=== PATIENT | male | born 1940 | race Caucasian/White ===

== ENCOUNTER 2019-07-01 10:59 | Inpatient (IN) ==
[2019-07-01 11:48] LABS: Basophils % 0.5 %; Eosinophils # 0.1 K/mcL (0.0-0.6); Eosinophils % 1.8 %; Hematocrit 49.9 % (37.5-50.1); Hemoglobin 16.7 g/dL (12.9-16.9); Immature Granulocytes % 0.2 % (0-4); Lymphocytes # 1.2 K/mcL (0.6-4.6); Lymphocytes % 22.4 %; Mean Corpuscular HGB Conc 33.5 g/dL (31.6-35.5); Mean Corpuscular Volume 92.6 fL (83.0-100.0); Mean Platelet Volume 10.5 fL (9.4-12.4); Monocytes # 0.3 K/mcL (0.0-1.3); Monocytes % 5.6 %; Neutrophils # 3.9 K/mcL (1.6-8.9); Platelet Count 189 K/mcL (140-400); Red Blood Count 5.39 M/mcL (4.19-5.50); Red Cell Distribution Width 12.9 % (11.5-14.5); Segmented Neutrophils % 69.5 %; White Blood Count 5.5 K/mcL (4.3-11.1)
[2019-07-01 12:06] LABS: Alanine Aminotransferase 9 Units/L (7-52); Albumin 4.2 g/dL (3.5-5.7); Albumin/Globulin Ratio 1.4 (1.1-2.2); Alkaline Phosphatase 96 Units/L (34-104); Aspartate Amino Transferase 15 Units/L (13-39); BUN/Creatinine Ratio 17 (6-26); Bilirubin,Total 1.1 mg/dL (0.3-1.0); Blood Urea Nitrogen 19 mg/dL (8-23); Calcium 9.6 mg/dL (8.6-10.3); Carbon Dioxide 28 mEq/L (23-29); Chloride 105 mEq/L (98-107); Glucose 112 mg/dL (70-105); Osmolality,Calculated 291 (280-300); Potassium 3.7 mEq/L (3.5-5.1); Sodium 139 mEq/L (136-145); Total Protein 7.2 g/dL (6.4-8.9); Troponin I 0.04 ng/mL (< 0.04); eGFR For African Americans > 60 (> 60); eGFR For Non-African Americans > 60 (> 60)
[2019-07-01] MEDS ORDERED: Aspirin 325 MG TABLET PO ONE (12:20)
[2019-07-01] MEDS ORDERED: Naloxone 0.4 MG/ML INJ IVP PRN (14:08)
[2019-07-01] MEDS: amLODIPine 5 MG TABLET PO SCH (15:34)
[2019-07-02 05:24] LABS: Basophils % 0.5 %; Eosinophils # 0.3 K/mcL (0.0-0.6); Lymphocytes # 2.2 K/mcL (0.6-4.6); Lymphocytes % 34.1 %; Mean Corpuscular HGB Conc 33.3 g/dL (31.6-35.5); Mean Corpuscular Hemoglobin 30.9 pg (28.0-33.3); Mean Corpuscular Volume 92.8 fL (83.0-100.0); Mean Platelet Volume 10.3 fL (9.4-12.4); Monocytes # 0.5 K/mcL (0.0-1.3); Monocytes % 7.9 %; Neutrophils # 3.5 K/mcL (1.6-8.9); Platelet Count 182 K/mcL (140-400); Red Blood Count 4.85 M/mcL (4.19-5.50); Red Cell Distribution Width 13.1 % (11.5-14.5); Segmented Neutrophils % 53.5 %; White Blood Count 6.6 K/mcL (4.3-11.1)
[2019-07-02 05:53] LABS: BUN/Creatinine Ratio 16 (6-26); Blood Urea Nitrogen 21 mg/dL (8-23); Carbon Dioxide 28 mEq/L (23-29); Chloride 104 mEq/L (98-107); Chol/HDL Ratio 3.2 (0-4.9); Cholesterol 167 mg/dL (< 200); Glucose 91 mg/dL (70-105); HDL Cholesterol 53 mg/dL (40-59); LDL Cholesterol,Calculated 105 mg/dL (0-99); Osmolality,Calculated 289 (280-300); Potassium 3.5 mEq/L (3.5-5.1); Sodium 138 mEq/L (136-145); Triglycerides 44 mg/dL (< 150); eGFR For African Americans > 60 (> 60); eGFR For Non-African Americans 54 (> 60)
[2019-07-02] MEDS: *HR* Enoxaparin 40 MG/0.4 ML SYRINGE SQ SCH (05:56)
[2019-07-02 05:58] LABS: Thyroid Stimulating Hormone 2.065 mcIU/mL (0.340-5.600)
[2019-07-02 08:27] LABS: Estimated Average Glucose 114 mg/dl
[2019-07-02] MEDS: amLODIPine 5 MG TABLET PO SCH (10:00)
[2019-07-02] MEDS ORDERED: amLODIPine 5 MG TABLET PO ONE (12:32)
[2019-07-03] MEDS: *HR* Enoxaparin 40 MG/0.4 ML SYRINGE SQ SCH (05:25)
[2019-07-03 06:54] LABS: Hemoglobin 15.5 g/dL (12.9-16.9); Mean Corpuscular HGB Conc 33.7 g/dL (31.6-35.5); Mean Corpuscular Hemoglobin 31.3 pg (28.0-33.3); Mean Corpuscular Volume 92.7 fL (83.0-100.0); Mean Platelet Volume 10.7 fL (9.4-12.4); Platelet Count 191 K/mcL (140-400); Red Blood Count 4.96 M/mcL (4.19-5.50); Red Cell Distribution Width 13.2 % (11.5-14.5)
[2019-07-03 07:23] LABS: BUN/Creatinine Ratio 19 (6-26); Blood Urea Nitrogen 24 mg/dL (8-23); Calcium 9.3 mg/dL (8.6-10.3); Carbon Dioxide 26 mEq/L (23-29); Chloride 104 mEq/L (98-107); Glucose 99 mg/dL (70-105); Osmolality,Calculated 296 (280-300); Potassium 3.6 mEq/L (3.5-5.1); Sodium 141 mEq/L (136-145); Troponin I 0.09 ng/mL (< 0.04); eGFR For African Americans > 60 (> 60); eGFR For Non-African Americans 55 (> 60)
[2019-07-03] MEDS: amLODIPine 5 MG TABLET PO SCH (08:57)
[2019-07-03] MEDS ORDERED: lisinopriL 5 MG TABLET PO SCH (12:15)
[2019-07-03] MEDS ORDERED: hydrOXYzine pamoate 25 MG CAPSULE PO PRN (15:52)
[2019-07-04 01:19] LABS: Hematocrit 43.8 % (37.5-50.1); Hemoglobin 14.7 g/dL (12.9-16.9); Mean Corpuscular HGB Conc 33.6 g/dL (31.6-35.5); Mean Corpuscular Volume 92.4 fL (83.0-100.0); Mean Platelet Volume 10.2 fL (9.4-12.4); Platelet Count 189 K/mcL (140-400); Red Blood Count 4.74 M/mcL (4.19-5.50); Red Cell Distribution Width 13.1 % (11.5-14.5); White Blood Count 6.7 K/mcL (4.3-11.1)
[2019-07-04 01:34] LABS: BUN/Creatinine Ratio 24 (6-26); Blood Urea Nitrogen 32 mg/dL (8-23); Carbon Dioxide 28 mEq/L (23-29); Chloride 107 mEq/L (98-107); Glucose 95 mg/dL (70-105); Osmolality,Calculated 289 (280-300); Potassium 3.6 mEq/L (3.5-5.1); Sodium 136 mEq/L (136-145); eGFR For African Americans > 60 (> 60); eGFR For Non-African Americans 53 (> 60)
[2019-07-04] MEDS: *HR* Enoxaparin 40 MG/0.4 ML SYRINGE SQ SCH (05:19)
[2019-07-04] MEDS ORDERED: 0.9 % Sodium Chloride 500 ML IVC SCH (07:30)
[2019-07-04] MEDS ORDERED: lisinopriL 5 MG TABLET PO SCH (07:45)
[2019-07-04] MEDS: amLODIPine 5 MG TABLET PO SCH (09:31)
[2019-07-04 10:51] VITALS: BP 125/70
== END 2019-07-04 12:33 | disposition home or self-care (01) | DRG 305 ==
LOC: 3BNU 10:59 → EMEROOARM 10:59 → 3BNU 14:37
PROVIDERS: ADMIT Internal Medicine; ATTEND Internal Medicine